=== PATIENT | female | born 1965 | race Two or more races ===

== ENCOUNTER 2020-06-10 08:51 | Outpatient (CLI) | payer OTHER | END 2020-06-10 10:55 | disposition home or self-care (01) | LOC: OFIC 805 08:51 | PROVIDERS: ATTEND Otolaryngology Otology & Neurotology | DX: K21.9 Gastro-esophageal reflux disease without esophagitis (principal); R05 Cough; D16.4 Benign neoplasm of bones of skull and face ==

== ENCOUNTER 2020-08-05 08:35 | Outpatient (CLI) | payer OTHER | END 2020-08-05 09:57 | disposition home or self-care (01) | LOC: OFIC 805 08:35 | PROVIDERS: ATTEND Otolaryngology Otology & Neurotology | DX: K21.9 Gastro-esophageal reflux disease without esophagitis (principal); R05 Cough; D16.4 Benign neoplasm of bones of skull and face ==